=== PATIENT | female | born 1980 | race Caucasian/White ===

== ENCOUNTER 2017-03-18 13:43 | Emergency (ER) | payer OTHER ==
[~2017-03-18] VITALS: Ht 160 cm; Wt 60.0 kg
[2017-03-18 14:02] VITALS: BP 114/80; PULSE 96; RESP 18; TEMP 98.1; O2SAT 99
[2017-03-18] MEDS ORDERED: SODIUM CHLOR 0.9% 1000 ML INJ 1,000 ML IV ONE (14:22)
[2017-03-18] MEDS ORDERED: LEVE500 PO ×2 (14:28→17:11)
[2017-03-18] MEDS ORDERED: levETIRAcetam INJ 100 ML IV ONE (14:30)
[2017-03-18] MEDS ORDERED: PROCHLORPERAZINE INJ 10 MG/2 ML VIAL IVP ONE (14:30)
[2017-03-18] MEDS ORDERED: diphenhydrAMINE HCL 50 MG/ML VIAL IVP ONE (14:30)
[2017-03-18 15:02] LABS: C-REACTIVE PROTEIN LESS THAN 0.29 MG/DL (0.00-0.30); MAGNESIUM 2.2 MG/DL (1.5-2.5)
[2017-03-18 15:05] LABS: AUTOMATED NEUTROPHIL # 5.3 TH/MM3 (1.8-7.7); BASOPHIL % 0.5 % (0.0-2.0); EOSINOPHIL % 0.3 % (0.0-4.0); HEMATOCRIT 35.7 % (35.0-46.0); HEMOGLOBIN 12.4 GM/DL (11.6-15.3); LYMPH % 22.5 % (9.0-44.0); LYMPHOCYTE # 1.7 TH/MM3 (1.0-4.8); MEAN CORPUSCULAR HEMOGLOBIN 28.6 PG (27.0-34.0); MEAN CORPUSCULAR HGB CONC 34.8 % (32.0-36.0); MEAN PLATELET VOLUME 7.9 FL (7.0-11.0); MONO % 7.2 % (0.0-8.0); MONOCYTE # 0.5 TH/MM3 (0-0.9); NEUT % 69.5 % (16.0-70.0); PLATELET COUNT 298 TH/MM3 (150-450); RED BLOOD COUNT 4.35 MIL/MM3 (4.00-5.30); RED CELL DISTRIBUTION WIDTH 14.3 % (11.6-17.2); WHITE BLOOD COUNT 7.6 TH/MM3 (4.0-11.0)
[2017-03-18 15:07] LABS: ACETAMINOPHEN LESS THAN 2.0 MCG/ML (10.0-30.0)
[2017-03-18 15:29] LABS: BILIRUBIN, URINE NEG (NEG); BLOOD, URINE TRACE (NEG); GLUCOSE,URINE NEG (NEG); KETONE, URINE NEG (NEG); NITRITE,URINE NEG (NEG); PH, URINE 7.5 (5.0-8.5); SQUAMOUS EPITHELIAL CELL URINE 2 /hpf (0-5); URINE COLOR LIGHT-YELLOW (YELLW/STRAW); URINE LEUKOCYTE ESTERASE NEG (NEG)
--- NOTE | 2017-03-18 16:11 | RADRPT ---
EXAM DATE/TIME: 03/18/2017 15:45 [place] COMPARISON: No previous studies available for comparison. INDICATIONS : Altered mental status with headaches. RADIATION DOSE: 35.67 CTDIvol (mGy) MEDICAL HISTORY : Seizures. SURGICAL HISTORY : None. ENCOUNTER: Initial ACUITY: 1 day PAIN SCALE: 2/10 LOCATION: Bilateral cranial TECHNIQUE: Multiple contiguous axial images were obtained of the head. Using automated exposure control and adj ustment of the mA and/or kV according to patient size, radiation dose was kept as low as reasonably a chievable to obtain optimal diagnostic quality images. DICOM format image data is available electro nically for review and comparison. FINDINGS: CEREBRUM: There is mild nonspecific white matter hypodensity in the left temporal lobe on image #10. No evidenc e of acute intracranial hemorrhage. No mass effect or midline shift. Bhagat matter-white matter differe ntiation within normal limits. POSTERIOR FOSSA: The cerebellum and brainstem are intact. The 4th ventricle is midline. The cerebellopontine angle i s unremarkable. EXTRACRANIAL: The visualized portion of the orbits is intact. SKULL: Ovoid 1.3 cm lucency on a single image (image #3) indicating possible lucent bone lesion at the floor of the left middle cranial fossa. CONCLUSION: Nonspecific focal white matter hypodensity in the left temporal lobe and possible lucent bone lesion in the left temporal bone. May represent age-indeterminate ischemic change. These findings could be f urther evaluated with brain MRI. Steve Noriega MD on March 18, 2017 at 16:05 Board Certified Radiologist. This report was verified electronically.
--- NOTE | 2017-03-18 16:21 | PD ---
HPI Chief Complaint: Headache Time Seen by Provider: 14:07 Travel History International Travel<30 days: No Contact w/Intl Traveler<30days: No Traveled to known affect area: No History of Present Illness HPI 36-year-old female that presents to the ED for evaluation of possible seizure versus headache. Per patient she has a history of seizures and she's only had 2 in her life. Per patient she had one when she was in her 20s. Per patient she had another one in 2015 when the decided to put her on Keppra twice a day. Per patient she gets an aura before she gets the seizure-like activity. Per patient she does have a history migraine headaches and she gets the same symptoms when she gets her migraine headaches. Per patient today she was at work and she had an aura that she describes as blurry vision and a slight headache to the left side of the head. Per patient she developed a headache and she started feeling dizzy like she was given have a seizure. Per ambulance report she was staring into nothing. She currently states that she still has aura and feels like something is coming but the headache per patient is 8 out of 10. She denies any chest pain or shortness of breath. No urinary or bowel movement issues. Per patient she tells me that since starting the Keppra she has had minimal to no headaches or aura like activity but per patient she is also noncompliant. Per patient she herself started to wean herself out of the Keppra because she believes she did not need it anymore. She is to follow with her neurologist but her insurance changed and she does not want to have a neurologist. Per patient overall she understands that she probably needed to be on her Keppra. She has not been taking the Keppra for 2 months straight. Per ambulance report she did not have any tonic-clonic seizure-like activity. She denies any pain other than the headache. No blurred vision or double vision. No other symptoms. Denies . Allergies to penicillin and iodine. Did not think anything for this. PFSH Past Medical History Diabetes: No Migraines: Yes Seizures: Yes Tetanus Vaccination: > 5 Years Influenza Vaccination: No ?: Not LMP: 03/17/17 Past Surgical History Cholecystectomy: Yes Other Surgery: Yes (L EYE, UTERINE PROLAPSE REPAIR) Social History Alcohol Use: Yes (OCCAS) Tobacco Use: No Substance Use: No Allergies-Medications (Allergen,Severity, Reaction): Coded Allergies: Penicillins (Verified Allergy, Intermediate, Rash, 03/18/17) iodine (Verified Allergy, Intermediate, Rash, 03/18/17) Reported Meds & Prescriptions Reported Meds & Active Scripts Active Keppra (Levetiracetam) 500 Mg Tab 500 Mg PO BID Review of Systems Except as stated in HPI: all other systems reviewed are Neg Physical Exam Narrative GENERAL: SKIN: Warm and dry. HEAD: Atraumatic. Normocephalic. EYES: Pupils equal and round 4mms reactive to light and accomodation. No scleral icterus. No injection or drainage. ENT: No nasal bleeding or discharge. Mucous membranes pink and moist. Tongue is midline. No uvula deviation. NECK: Trachea midline. No JVD. CARDIOVASCULAR: Regular rate and rhythm. No murmurs, S3, S4. RESPIRATORY: No accessory muscle use. Clear to auscultation. Breath sounds equal bilaterally. GASTROINTESTINAL: Abdomen soft, non-tender, nondistended. Hepatic and splenic margins not palpable. MUSCULOSKELETAL: Extremities without clubbing, cyanosis, or edema. No obvious deformities. Full range of motion of the upper and lower extremities bilaterally. 2+ pulses bilaterally. No lumbar, thoracic, cervical spine tenderness to palpation. NEUROLOGICAL: Awake and alert. No obvious cranial nerve deficits. Motor grossly within normal limits. Five out of 5 muscle strength in the arms and legs. Normal speech. PSYCHIATRIC: Appropriate mood and affect; insight and judgment normal. Data Data Last Documented VS Vital Signs Date Time Temp Pulse Resp B/P (MAP) Pulse Ox O2 Delivery O2 Flow Rate FiO2 03/18/17 16:46 90 18 111/71 (84) 99 Room Air 03/18/17 14:02 98.1 Orders Orders Electrocardiogram (03/18/17 14:07) Complete Blood Count With Diff (03/18/17 14:07) C-Reactive Protein (Crp) (03/18/17 14:07) Urinalysis - C+S If Indicated (03/18/17 14:07) Magnesium (Mg) (03/18/17 14:07) Thyroid Stimulating Hormone (03/18/17 14:07) Ct Brain W/O Iv Contrast(Rout) (03/18/17 14:07) Iv Access Insert/Monitor (03/18/17 14:07) Ecg Monitoring (03/18/17 14:07) Oximetry (03/18/17 14:07) Ed Urine Pregnancytest Poc (03/18/17 14:07) Drug Screen, Random Urine (03/18/17 14:07) Alcohol (Ethanol) (03/18/17 14:07) Salicylates (Aspirin) (03/18/17 14:07) Tylenol (Acetaminophen) (03/18/17 14:07) Prochlorperazine Inj (Compazine Inj) (03/18/17 14:30) Diphenhydramine Inj (Benadryl Inj) (03/18/17 14:30) Sodium Chlor 0.9% 1000 Ml Inj (Ns 1000 M (03/18/17 14:22) Levetiracetam Inj (Keppra Inj) (03/18/17 14:30) Basic Metabolic Panel (Bmp) (03/18/17 15:25) Ed Discharge Order (03/18/17 17:20) Labs Laboratory Tests Test 03/18/17 14:35 03/18/17 14:50 White Blood Count 7.6 TH/MM3 Red Blood Count 4.35 MIL/MM3 Hemoglobin 12.4 GM/DL Hematocrit 35.7 % Mean Corpuscular Volume 82.0 FL Mean Corpuscular Hemoglobin 28.6 PG Mean Corpuscular Hemoglobin Concent 34.8 % Red Cell Distribution Width 14.3 % Platelet Count 298 TH/MM3 Mean Platelet Volume 7.9 FL Neutrophils (%) (Auto) 69.5 % Lymphocytes (%) (Auto) 22.5 % Monocytes (%) (Auto) 7.2 % Eosinophils (%) (Auto) 0.3 % Basophils (%) (Auto) 0.5 % Neutrophils # (Auto) 5.3 TH/MM3 Lymphocytes # (Auto) 1.7 TH/MM3 Monocytes # (Auto) 0.5 TH/MM3 Eosinophils # (Auto) 0.0 TH/MM3 Basophils # (Auto) 0.0 TH/MM3 CBC Comment DIFF FINAL Differential Comment Blood Urea Nitrogen 12 MG/DL Creatinine 0.73 MG/DL Random Glucose 90 MG/DL Calcium Level 8.7 MG/DL Sodium Level 141 MEQ/L Potassium Level 3.7 MEQ/L Chloride Level 106 MEQ/L Carbon Dioxide Level 26.9 MEQ/L Anion Gap 8 MEQ/L Estimat Glomerular Filtration Rate 90 ML/MIN Magnesium Level 2.2 MG/DL C-Reactive Protein LESS THAN 0.29 MG/DL Thyroid Stimulating Hormone 3rd Gen 1.300 uIU/ML Salicylates Level LESS THAN 1.7 MG/DL Acetaminophen Level LESS THAN 2.0 MCG/ML Ethyl Alcohol Level LESS THAN 3 MG/DL Urine Color LIGHT-YELLOW Urine Turbidity CLEAR Urine pH 7.5 Urine Specific [place] 1.003 Urine Protein NEG mg/dL Urine Glucose (UA) NEG mg/dL Urine Ketones NEG mg/dL Urine Occult Blood TRACE Urine Nitrite NEG Urine Bilirubin NEG Urine Urobilinogen LESS THAN 2.0 MG/DL Urine Leukocyte Esterase NEG Urine RBC 1 /hpf Urine WBC 2 /hpf Urine Squamous Epithelial Cells 2 /hpf Microscopic Urinalysis Comment CULT NOT INDICATED Urine Opiates Screen NEG Urine Barbiturates Screen NEG Urine Amphetamines Screen NEG Urine Benzodiazepines Screen NEG Urine Cocaine Screen NEG Urine Cannabinoids Screen NEG MDM Medical Decision Making Medical Screen Exam Complete: Yes Emergency Medical Condition: Yes Medical Record Reviewed: Yes Interpretation(s) CBC Diagram 03/18/17 14:35 BMP Diagram 03/18/17 14:35 Calcium Level 8.[address] 03/18/17 1407 Signed Impressions: Service Date/Time: February 15:45 - CONCLUSION: Nonspecific focal white matter hypodensity in the left temporal lobe and possible lucent bone lesion in the left temporal bone. May represent age-indeterminate ischemic change. These findings could be further evaluated with brain MRI. Steve Noriega MD Differential Diagnosis Headache versus seizure-like activity versus seizure versus noncompliance versus a typical migraine headache versus migraine headache Narrative Course 36-year-old female that presents to the ED for evaluation of headache and possible seizure. Patient was properly examined and was found to have signs and symptoms which appear to be consistent with possible atypical migraine headache. Labs and imaging were ordered. Labs and imaging did show no sign of acute disease. Patient feels improved. Patient was given Keppra bolus here IV. At this time patient seems agreeable with plan. Patient will be given a refill of her Keppra. I gave her information for neurologists in [facility] to follow up with as she probably will have to be on the Keppra for some time to prevent this from happening. Unclear if this is seizure but does appear to have some a typical presentation. Patient has had no seizure like activity here in the ED. Family agrees with plan. No driving until. By neurology. See ED worsening symptoms. CT did show possible abnormality. MRI was recommended per radiologist. I discussed this with the patient who stated that she had an CAT scan and MRI secondary to the same reason before and she prefers not to undergo the MRI. She states that she probably go home and follow with neurology. She understands the risks of this. I think at this time this seems reasonable as patient has had workup in the past. She was told that without further testing we could be missing other disease. She agrees with the risks. At this time we'll treat her regardless as stated above she does feel improved with Keppra as well as medications given here. Diagnosis Primary Impression: Seizure Additional Impression: Migraine headache Qualified Codes: G43.101 - Migraine with aura, not intractable, with status migrainosus Referrals: Ar Gan MD Ossi,Abdirizak Peralta MD, MD PhD Patient Instructions: General Instructions Additional Instructions: Take medications as prescribed. Follow with PCP. See ED worsening symptoms. Med/Other Pt SpecificInfo: Prescription(s) given Scripts Levetiracetam (Keppra) 500 Mg Tab 500 MG PO BID for Control Seizures, #60 TAB 0 Refills Prov: Ron Reyes MD 03/18/17 Disposition: 01 DISCHARGE HOME Condition: Stable Axel Ansari Mar 18, 2017 16:21
[2017-03-18 16:36] LABS: BICARBONATE 26.9 MEQ/L (21.0-32.0); CALCIUM 8.7 MG/DL (8.5-10.1); CREATININE 0.73 MG/DL (0.50-1.00)
[2017-03-18 16:46] VITALS: BP 111/71; PULSE 90; RESP 18; O2SAT 99
--- NOTE | 2017-03-19 10:13 | EKG ---
Date Performed: 03/18/2017 Time Performed: 14:46:14 PTAGE: 36 years EKG: Sinus rhythm NORMAL ECG NO PREVIOUS TRACING DOCTOR: Alberto Licnoa Interpretating Date/Time 03/19/2017 10:11:58
== END 2017-03-18 18:11 | disposition home or self-care (01) ==
LOC: NEPE 13:43
DX: R56.9 Unspecified convulsions (principal); G43.101 Migraine with aura, not intractable, with status migrainosus; Z88.0 Allergy status to penicillin; Z91.19 Patient's noncompliance with other medical treatment and regimen
CPT/HCPCS: 70450; 80048; 80307; 81001; 83735; 84443; 84703; 85025; 86140; 93005; 96365; 96375; 99285; J0780; J1200; J1953; J7030